=== PATIENT | male | born 1955 | race Caucasian/White ===

== ENCOUNTER → 2019-01-14 | Outpatient (CLI) | payer BC ==
--- NOTE | 2019-01-14 08:39 | Diagnostic Imaging Report ---
EXAMINATION: Right foot 8:13 AM INDICATION: Foot pain Three views were obtained. There are no prior studies available for comparison. There is no fracture, dislocation or acute bony abnormality evident. The Lisfranc joint is well maintained. There is a prominent calcaneal spur. There is also a calcified enthesophyte along the posterior aspect of the calcaneus near the expected location of the insertion of the Achilles tendon. The soft tissues are unremarkable. IMPRESSION: 1. There is no evidence for an acute bony abnormality. 2. There is a prominent calcaneal spur. Dictated by: Dictated on workstation # [id number]
== END ==
LOC: RAD FS 08:10
PROVIDERS: ATTEND Nurse Practitioner Family
DX: M77.31 Calcaneal spur, right foot (principal)
CPT/HCPCS: 73630

== ENCOUNTER → 2020-05-23 | Outpatient (CLI) | payer BC ==
--- NOTE | 2020-05-23 11:15 | Diagnostic Imaging Report ---
Indication: Cough and congestion. Time of exam: 10:38 AM No prior studies are available for comparison. The heart size is normal. The pulmonary vascularity is unremarkable. The lungs are clear. No infiltrate, effusion or pneumothorax is detected. Impression: No acute cardiopulmonary process is detected. Dictated by: Dictated on workstation # [id number]
== END ==
LOC: RAD FS 10:23
PROVIDERS: ATTEND Nurse Practitioner Family
DX: R06.2 Wheezing (principal); R05 Cough; R09.89 Other specified symptoms and signs involving the circulatory and respiratory systems
CPT/HCPCS: 71046

== ENCOUNTER → 2020-07-30 | Outpatient (CLI) | payer BC ==
[~2020-07-30] MED LIST: RT-ALBUTEROL SULF 2.5 MG/3 ML PRE-MIX VIAL INH ONE
== END ==
LOC: RT 15:30
PROVIDERS: ATTEND Nurse Practitioner Family
DX: R05 Cough (principal)
CPT/HCPCS: 94060; 94726; 94729

== ENCOUNTER 2020-11-12 07:01 | Outpatient (RCR) | payer BC ==
[~2020-11-12] VITALS: Ht 185.4 cm; Wt 108.3 kg
[2020-11-12] MEDS ORDERED: RT-ALBUINH INH (12:38)
[2020-11-12] MEDS ORDERED: AMLO10TA4 PO (12:40)
[2020-11-12] MEDS ORDERED: PANT40TA52 PO (12:40)
[2020-11-12] MEDS ORDERED: SILD100T67 PO (12:40)
[2020-11-12] MEDS ORDERED: LISI40TA9 PO (12:40)
[2020-11-12] MEDS ORDERED: MULT-974 PO (12:52)
== END 2020-11-15 14:48 | disposition home or self-care (01) ==
LOC: PREOP 07:01
PROVIDERS: ATTEND Surgery
DX: Z01.818 Encounter for other preprocedural examination (principal)

== ENCOUNTER → 2020-11-16 | Outpatient (CLI) | payer BC ==
[~2020-11-16] MED LIST changes: +AMLO10TA4 PO; +LISI40TA9 PO; +MULT-974 PO; +PANT40TA52 PO; +RT-ALBUINH INH; -RT-ALBUTEROL SULF 2.5 MG/3 ML PRE-MIX VIAL INH ONE; +SILD100T67 PO
== END ==
LOC: LAB FS 10:00
PROVIDERS: ATTEND Surgery
DX: Z01.812 Encounter for preprocedural laboratory examination (principal); K29.71 Gastritis, unspecified, with bleeding; Z20.822 Contact with and (suspected) exposure to COVID-19
CPT/HCPCS: 87635

== ENCOUNTER → 2020-11-19 | Day surgery (SDC) | payer BC ==
[~2020-11-19] VITALS: Ht 185.4 cm; Wt 108.3 kg
[~2020-11-19] MED LIST changes: +HURRICAINE EXT TUBE (BENZOCAINE) ONE; +HURRICAINE EXT TUBE (BENZOCAINE) XX PRN; +LACTATED RINGERS 1,000 ML IV ONE; +LACTATED RINGERS 1,000 ML IV STA; +MIDAZOLAM 2 MG/2 ML (VERSED) VIAL ONE; +PROPOFOL INJECTION 50 ML IV ONE
[2020-11-19 09:00] VITALS: BP 157/102
--- NOTE | 2020-11-19 10:13 | Progress Note-Pre Operative ---
Pre-Operative Progress Note H&P Reviewed The H&P was reviewed, patient examined and no changes noted. Time Seen by Provider: 10:10 Date H&P Reviewed: Nov 19, 2020 Time H&P Reviewed: 10:11 Pre-Operative Diagnosis: rectal bleed, gastritis, hx of polyp FANTASMA HITCHCOCK DO Nov 19, 2020 10:13
[2020-11-19 11:00] VITALS: BP 121/88
--- NOTE | 2020-11-19 11:04 | Progress Note-Post Operative ---
Post-Operative Progess Note Surgeon (s)/Track Announcer (s) Surgeon FANTASMA HITCHCOCK DO Track Announcer: Moustapha Lewis Pre-Operative Diagnosis rectal bleed, gastritis, hx of polyp Post-Operative Diagnosis gastritis hiatal hernia polyps diverticula int hemorrhoids Procedure & Operative Findings Date of Procedure 11/19/20 Procedure Performed/Findings EGD with bx Colon with snare Colon with bx Anesthesia Type IV sedation by [employer] Estimated Blood Loss Estimated blood loss (mL): scant Specimens/Packing Specimens Removed antral bx body of stomach bx GE jxn bx Asc colon polyp x2 sigmoid polyp FANTASMA HITCHCOCK DO Nov 19, 2020 11:04
[2020-11-19 11:05] VITALS: BP 141/87
--- NOTE | 2020-11-19 11:05 | Endoscopy Discharge Instruct ---
Endo Procedure/Findings Findings 1.: Gastritis 2.: Hiatal Hernia 3.: Polyp 4.: Diverticulosis, Internal Hemorrhoids Discharge Instructions - Activity: You might feel a little sleepy until tomorrow. This is due to the medicine you received to relax you. Until tomorrow, you should: NOT drive a car, operate machinery or power tools. NOT drink any alcoholic beverages. NOT make any important decisions or sign importortant papers. Do not return to work until tomorrow, unless otherwise instructed. Resume previous activities tomorrow. Diet: Start by taking liquids. If you tolerate liquids, advance to solid food. 1.: Colonscopy in 5 years 2.: EGD in 3 years Notify Physician - If you experience excessive bleeding, unusual abdominal pain, fever, or chest pain, contact your doctor immediately. FANTASMA HITCHCOCK DO Nov 19, 2020 11:04
[2020-11-19 11:10] VITALS: BP 122/60
[2020-11-19 11:40] VITALS: BP 136/90
[2020-11-19 11:55] VITALS: BP 136/90
--- NOTE | 2020-11-19 12:51 | Anesthesia-General Post-Op ---
MAC Patient Condition Mental Status/LOC: Same as Preop Cardiovascular: Satisfactory Nausea/Vomiting: Absent Respiratory: Satisfactory Pain: Controlled Complications: Absent Post Op Complications Complications None Follow Up Care/Instructions Patient Instructions None needed. Anesthesiology Discharge Order Discharge Order Patient is doing well, no complaints, stable vital signs, no apparent adverse anesthesia problems. No complications reported per nursing. HAVEN BILLINGSLEY CRNA Nov 19, 2020 12:51
--- NOTE | 2020-11-20 02:37 | OPERATIVE REPORT ---
DATE OF SERVICE: PREOPERATIVE DIAGNOSES: Rectal bleed, gastritis, history of colon polyps. POSTOPERATIVE DIAGNOSES: Gastritis, hiatal hernia, colon polyps, diverticula, internal hemorrhoids. PROCEDURES: 1. EGD with biopsy. 2. Colonoscopy with snare polypectomy. 3. Colonoscopy with cold biopsy. SURGEON: Shahid Calvo DO ALUMNI RELATIONS COORDINATOR: Moustapha Lewis MS3. ANESTHESIA: IV sedation by the STORE PERSON. SPECIMEN: Biopsy from the antrum, biopsy of body of stomach, biopsy of the GE junction as well as 2 polyps in the ascending colon and one polyp in the sigmoid colon. BLOOD LOSS: Scant. FLUIDS: Per anesthesia. POSTOPERATIVE CONDITION: Stable. INDICATION FOR PROCEDURE: The patient is a 65-year-old male who has been having some rectal bleeding and some gastritis with history of colon polyps, needed a workup. FINDINGS: The patient had gastritis and hiatal hernia. In the colon, he had 3 polyps, one large one and small ones. He also had a lot of diverticula and some internal hemorrhoids. PROCEDURE NOTE: After informed consent was obtained, the patient was brought to the endoscopy suite, placed in bed in left lateral decubitus position. He was administered IV sedation by the STORE PERSON who then monitored his vitals the entire time, heart rate, blood pressure and pulse ox and the scope was inserted, started with the EGD, placing scope down the mouth through the esophagus and into the stomach. Upon entering the stomach, noted some gastritis at the antrum, pushing the duodenum, duodenum looked fine, took a picture. Pulled back, did a biopsy of the antrum. Retroflexed the scope, saw hiatal hernia, took a picture of this and then did biopsy of the body of stomach, then pulled the scope into the GE junction, did two biopsies. I then suctioned all the air out of stomach and pulled the scope up the esophagus and out the mouth. Switched camera, switched gloves, went down below, started the colonoscopy. Pushed in, on the way in, noted some diverticula and then in the ascending colon, saw a large polyp, did a snare polypectomy of this, able to get all of it completely removed and then continued on to the cecum, took a picture of the appendiceal orifice, noted the ileocecal valve and then slowly withdrew the scope insufflating to look circumferentially at the elliott looking the cecum, up the ascending colon and ascending colon, saw another polyp, but this one was very flat, elected to do a biopsy of this to get a piece for pathology and then continued up to the hepatic flexure, then down the transverse colon, splenic flexure, into the descending colon and down into the sigmoid. In the sigmoid, saw another flat polyp, unable to do a snare polypectomy, so did another biopsy of this and then down into the rectum, retroflexed in rectal vault, saw some minimal internal hemorrhoids, took a picture of this and then removed the scope. The patient tolerated the procedure, recovered in endoscopy suite. Job ID: [id number] DocumentID: [id number] Dictated Date: 11/19/2020 19:27:23 Glass Artist Date: 11/20/2020 02:35:47 Dictated By: DO RAJINDER BEAVERS
== END ==
LOC: ENDO 08:43
PROVIDERS: ATTEND Surgery
DX: D12.2 Benign neoplasm of ascending colon (principal); D12.5 Benign neoplasm of sigmoid colon; K64.8 Other hemorrhoids; K57.30 Diverticulosis of large intestine without perforation or abscess without bleeding; K20.90 Esophagitis, unspecified without bleeding; K62.5 Hemorrhage of anus and rectum; K29.70 Gastritis, unspecified, without bleeding; K44.9 Diaphragmatic hernia without obstruction or gangrene; I10 Essential (primary) hypertension; J45.909 Unspecified asthma, uncomplicated; M19.90 Unspecified osteoarthritis, unspecified site; E66.9 Obesity, unspecified; Z68.31 Body mass index [BMI] 31.0-31.9, adult; Z79.51 Long term (current) use of inhaled steroids; Z79.899 Other long term (current) drug therapy; Z86.010 Personal history of colon polyps

== ENCOUNTER → 2021-05-01 | Outpatient (CLI) | payer BC ==
[~2021-05-01] MED LIST changes: -HURRICAINE EXT TUBE (BENZOCAINE) ONE; -HURRICAINE EXT TUBE (BENZOCAINE) XX PRN; -LACTATED RINGERS 1,000 ML IV ONE; -LACTATED RINGERS 1,000 ML IV STA; -MIDAZOLAM 2 MG/2 ML (VERSED) VIAL ONE; -PROPOFOL INJECTION 50 ML IV ONE
--- NOTE | 2021-05-01 12:24 | Diagnostic Imaging Report ---
PROCEDURE: MRI right joint lower extremity without contrast. TECHNIQUE: Multiplanar, multisequence non contrast-enhanced MRI of the right ankle was accomplished. INDICATION: Right ankle pain. COMPARISONS: None available. FINDINGS: TENDONS: Achilles is intact. There is a short segment split longitudinal tear involving the retromalleolar segment of the peroneus brevis, but its distal insertion is intact. Peroneus longus is normal. Anterior tibialis, extensor hallucis longus and extensor digitorum longus are normal where visualized. Posterior tibialis, flexor digitorum longus and flexor hallucis longus are normal. LIGAMENTS: Anterior and posterior distal tibiofibular ligaments are intact. Anterior talofibular, calcaneofibular and posterior talofibular ligaments are normal. Medial deltoid ligamentous complex is intact. Spring ligament has a stretched appearance. BONES AND CARTILAGE: No osteochondral lesion of the talar dome. No fracture or stress fracture. The articular cartilage of the tibiotalar and posterior subtalar joints are normal. SOFT TISSUES: No evidence of plantar fasciitis. No abnormal soft tissue scar/fibrosis within the tarsal canal/sinus tarsi or tarsal tunnel. Trace ankle joint effusion and/or synovitis. IMPRESSION: 1. 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 Its insertion on the base of fifth metatarsal remains intact. 2. No ligament tear. The spring ligament is stretched which can be seen in the early stages of acquired pes planus. Posterior tibialis tendon remains intact. Dictated by: Dictated on workstation # [id number]
== END ==
LOC: RAD 09:30
PROVIDERS: ATTEND Podiatrist Foot & Ankle Surgery
DX: S86.311A Strain of muscle(s) and tendon(s) of peroneal muscle group at lower leg level, right leg, initial encounter (principal); M76.71 Peroneal tendinitis, right leg; M76.821 Posterior tibial tendinitis, right leg; X58.XXXA Exposure to other specified factors, initial encounter
CPT/HCPCS: 73721

== ENCOUNTER → 2022-12-24 | Outpatient (CLI) | payer MEDICARE, OTHER ==
[~2022-12-24] MED LIST changes: +RT-ALBUTEROL SULF 2.5 MG/3 ML PRE-MIX VIAL INH ONE
== END ==
LOC: RT 07:37
PROVIDERS: ATTEND Nurse Practitioner Family
DX: J44.9 Chronic obstructive pulmonary disease, unspecified (principal)
CPT/HCPCS: 94060; 94726; 94729